=== PATIENT | female | born 1985 | race Caucasian/White ===

== ENCOUNTER 2019-06-12 12:57 | Emergency (ER) | payer MEDICAID ==
[~2019-06-12] VITALS: Ht 162.6 cm; Wt 80.0 kg
[2019-06-12 13:11] VITALS: BP 98/62
[2019-06-12] MEDS ORDERED: DOCU100C38 PO (13:51)
[2019-06-12] MEDS ORDERED: POLY17PO10 PO (13:51)
[2019-06-12] MEDS ORDERED: GLYC-23 RC (13:55)
[2019-06-12] MEDS ORDERED: PENI500T2 PO (13:55)
[2019-06-12 14:05] LABS: URINE HCG NEGATIVE (NEG)
[2019-06-12 14:14] LABS: CLARITY,URINE CLEAR (Clear); COLOR,URINE YELLOW (Yellow); GLUCOSE, URINE NEGATIVE (Neg); KETONES,URINE NEGATIVE (Neg); LEUKOCYTE ESTERASE ,URINE MODERATE (Neg); NITRITES, URINE NEGATIVE (Neg); OCCULT BLOOD,URINE NEGATIVE (Neg); PH,URINE 5.5 (4.8-8.0); PROTEIN,URINE NEGATIVE (Neg)
[2019-06-12 14:19] LABS: UA COLLECTION TYPE CLN CATCH MIDSTREAM
[2019-06-12 14:23] LABS: BACTERIA,URINE 2+ /HPF (Neg); MUCUS STRANDS NONE SEEN /LPF (Neg); RBC,URINE NONE SEEN /HPF (0-2); SQUAMOUS EPITHELIAL CELL,UR MODERATE /LPF (FEW)
== END 2019-06-12 15:03 | disposition home or self-care (01) ==
LOC: ER 12:58
DX: K04.7 Periapical abscess without sinus (principal); K59.00 Constipation, unspecified; N39.0 Urinary tract infection, site not specified; F15.90 Other stimulant use, unspecified, uncomplicated; F11.90 Opioid use, unspecified, uncomplicated; Z79.899 Other long term (current) drug therapy; Z91.040 Latex allergy status
CPT/HCPCS: 74018; 81001; 81025; 87088; 99284